=== PATIENT | female | born 1935 | race Caucasian/White ===

== ENCOUNTER 2016-07-18 10:02 | Emergency (ER) | payer OTHER ==
[~2016-07-18] VITALS: Ht 152.4 cm; Wt 88.0 kg
[2016-07-18 10:08] VITALS: BP 153/93
--- NOTE | 2016-07-18 10:53 | RADIOLOGY REPORT ---
EXAMINATION: XR CHEST CLINICAL INFORMATION: Productive cough COMPARISON: Multiple priors, most recently 04/25/2015 TECHNIQUE: PA and lateral views of the chest were obtained. FINDINGS: The lungs are well expanded. There is no focal consolidation, edema, or effusion. No pneumothorax. The cardiomediastinal silhouette is unchanged with a tortuous aorta. No acute osseous abnormality. IMPRESSION: No acute pulmonary findings
--- NOTE | 2016-07-18 11:02 | ED INFLUENZA/URI COMPLAINT ---
History of Present Illness General Chief Complaint: Fever Stated Complaint: COUGH, CONGESTIONQ Source: patient, family Exam Limitations: no limitations Vital Signs & Intake/Output Vital Signs & Intake/Output Vital Signs Date Time Temp Pulse Resp B/P Pulse O2 O2 Flow FiO2 Ox Delivery Rate 07/18 1145 Room Air 07/18 1008 97.5 98 22 153/93 96 Room Air Allergies Coded Allergies: Sulfa (Sulfonamide Antibiotics) (Severe, ANAPHYLAXIS 07/18/16) sulfite (Severe, ANAPHYLAXIS 07/18/16) Nitrate Analogues (UNKNOWN 07/18/16) shellfish derived (SWELLING 07/18/16) Reconcile Medications Benzonatate (Tessalon Perle) 100 MG CAPSULE 1 CAP PO TID PRN COUGH Triage Note: PT STATES SHE WAS DIAGNOSED WITH PNEUMONIA A WEEK AGO AND WAS PUT ON ZITHROMAX. STATES SHE DOESN'T FEEL ANY BETTER AND STILL HAS A PRODUCTIVE COUGH Triage Nurses Notes Reviewed? yes Onset: Gradual Duration: constant Timing: recent history Severity: moderate Severity Numbers: 5 HPI: Patient is an 81-year-old female with a past medical history of sleep apnea who presents emergency room with a 10 day history of intermittent chills and persistent nonproductive cough. Patient believes that she cannot "bringing anything up" from her cough. Patient states that her significant other who is present has similar sick symptoms. Patient's finished an azithromycin pack prescribed by primary care doctor on Saturday and states that she feels no better. Denies any fever, ear pain, sore throat, neck pain neck stiffness, chest pain arm and jaw pain nausea vomiting back pain shortness of breath dyspnea on exertion hemoptysis leg swelling. Patient states that due to her symptoms she is not using her sleep apnea because she believes that this will make her symptoms worse (KASSANDRA KC) Past History Travel History Traveled to [place] past 21 day No Medical History Any Pertinent Medical History? see below for history Cardiovascular: CHF Psychiatric: PANIC ATTACKS Cancer(s): UTERINE CANCER Surgical History Surgical History: hernia repair-umbilical, hysterectomy, knee surgery bladder tumor removal Psychosocial History What is your primary language Uruguayan Tobacco Use: Quit >30 days ago ETOH Use: denies use Illicit Drug Use: denies illicit drug use Family History Hx Contributory? No (KASSANDRA KC) Review of Systems Review of Systems Constitutional: Reports: see HPI, chills. Denies: fever. EENTM: Reports: no symptoms. Respiratory: Reports: see HPI, cough. Denies: hemoptysis, short of breath, sputum production , stridor. Cardiovascular: Reports: no symptoms. GI: Reports: no symptoms. Genitourinary: Reports: no symptoms. Musculoskeletal: Reports: no symptoms. Skin: Reports: no symptoms. Neurological/Psychological: Reports: no symptoms. Hematologic/Endocrine: Reports: no symptoms. Immunologic/Allergic: Reports: no symptoms. All Other Systems: Reviewed and Negative (KASSANDRA KC) Physical Exam Physical Exam General Appearance: no apparent distress, alert, obese Ears, Nose, Throat: normal ENT inspection, moist mucous membrane, hearing grossly normal, Tympanic normal, pharynx normal Comments: Well-developed well-nourished person in no acute distress HEENT: Normal EENT exam, extraocular motion intact, no nystagmus. Pupils equally round and reactive to light and accommodation. Nose is atraumatic. External auditory canal and Tympanic membranes clear. Pharynx normal. No swelling or edema. Neck: Supple, no lymphadenopathy, normal range of motion without pain or tenderness Back: Nontender, no CVA tenderness. Cardiovascular: Regular rate and rhythms no murmurs rubs or gallops, normal JVP Respiratory: Chest nontender. No respiratory distress.breath sounds clear to auscultation bilaterally Abdomen: Soft, nontender nondistended, no appreciable organomegaly. Normal bowel sounds. No ascites Extremity: No edema, no calf tenderness to palpation, normal and equal pulses. Neuro: Alert oriented x3, motor sensory normal, Skin: No appreciable rash on exposed skin, skin is warm and dry. Psych: Mood and affect is normal, memory and judgment is normal. Core Measures Severe Sepsis Present: No Septic Shock Present: No (KASSANDRA KC) Progress Differential Diagnosis: influenza, meningitis, neutropenia, otitis, pneumonia, pharyngitis, sinusitis Plan of Care: Initial physical examination patient looks well and nontoxic appearing afebrile and patient had unremarkable ear nose throat exam and had clear lungs auscultation Patient ambulated down the emergency room hallway and noted to be 97% With no concerns of rest or distress or hypoxia. Patient has no leg swelling no crackles in lungs and there is no concerns at this time the CHF. Patient has sick positive contacts as significant other has same symptoms in which I believe that at this time the patient has viral bronchitis. Patient had unresolved symptoms after azithromycin which I do not believe the patient has bacterial infection of bronchitis or pneumonia. Patient has follow-up tomorrow with primary care doctor. Chest x-ray was printed out for patient. Patient was offered steroids and Ventolin which she declined. Patient will be given Tessalon Perles and advised to begin Mucinex. Patient was strongly advised to return to emergency room if symptoms worsen and to follow-up tomorrow with primary care doctor. Discussed patient with Dr. SMITH who agrees with disposition plan Although PE is of my differential my suspicion of this is low Diagnostic Imaging: Viewed by Me: Radiology Read. CXR Impression: no acute abnormality, no infiltrates, normal size heart, normal mediastinum Initial ED EKG: none Comments: PATIENT: PAULIE RABAGO PRESENT AGE: 81 PATIENT ACCOUNT NO: [id number] : 36 LOCATION: [facility] ORDERING PHYSICIAN: THEO MORELOS DO (TBS) SERVICE DATE: 07/18/16 EXAM TYPE: RAD - XRY-CHEST XRAY, PA AND LATERAL EXAMINATION: XR CHEST CLINICAL INFORMATION: Productive cough COMPARISON: Multiple priors, most recently 04/25/2015 TECHNIQUE: PA and lateral views of the chest were obtained. FINDINGS: The lungs are well expanded. There is no focal consolidation, edema, or effusion. No pneumothorax. The cardiomediastinal silhouette is unchanged with a tortuous aorta. No acute osseous abnormality. IMPRESSION: No acute pulmonary findings (KASSANDRA KC) Departure Departure Disposition: HOME OR SELF CARE Condition: Stable Clinical Impression Primary Impression: Bronchitis Referrals: GERMAINE BRONSON,TRUDI (PCP/Family) Additional Instructions: As discussed begin to use YOUR CPAP machine as directed and please clean THE unit as directed. Begin the prescription of Tessalon Perles for your cough. Begin [id number] Mucinex for congestion relief. This prescription is waiting at [facility]. Follow up with YOUR primary care doctor's appointment tomorrow as you have an appointment. If symptoms worsen or IF YOU develop a new concerning symptom return to emergency room immediately. PROVIDE Your primary care doctor with the copy of the chest x-ray provided to you in the emergency room Departure Forms: Customer Survey General Discharge Information Prescriptions: Current Visit Scripts Benzonatate (Tessalon Perle) 1 CAP PO TID PRN COUGH #21 CAP (KASSANDRA KC) PA/GEL COAT SPRAYER Co-Sign Statement Statement: ED Attending supervision documentation- [X] I saw and evaluated the patient. I have also reviewed all the pertinent lab results and diagnostic results. I agree with the findings and the plan of care as documented in the PA's/GEL COAT SPRAYER's documentation. [X] I have reviewed the ED Record and agree with the PA's/GEL COAT SPRAYER's documentation. [] Additions or exceptions (if any) to the PAs/GEL COAT SPRAYER's note and plan are summarized below: [] (LUIS BRONSON,FLOR)
[2016-07-18] MEDS ORDERED: TESSALON PERLE100 M1 PO (11:30)
== END 2016-07-18 11:48 ==
LOC: ERH 10:02
DX: J40 Bronchitis, not specified as acute or chronic (principal); Z87.891 Personal history of nicotine dependence

== ENCOUNTER 2017-01-29 14:09 | Emergency (ER) | payer OTHER ==
[~2017-01-29] VITALS: Ht 152.4 cm; Wt 89.8 kg
[~2017-01-29 14:09] MED LIST: TESSALON PERLE100 M1 PO
--- NOTE | 2017-01-29 15:11 | ULTRASOUND REPORT ---
EXAMINATION: US TRIPLEX LOWER EXTREMITY, LEFT CLINICAL INFORMATION: Left calf pain. COMPARISON: None TECHNIQUE: Color-flow triplex imaging with spectral analysis and compression Doppler were performed on the lower extremity. FINDINGS: Respiratory variation, normal compression and augmented flow are noted throughout the left lower extremity. The visualized common femoral vein, superficial femoral vein, profunda femoral vein, popliteal vein and midcalf peroneal and posterior tibial venous segments show no evidence of deep venous thrombosis. There is a 4.1 x 1.4 x 1.5 cm popliteal fossa Osullivan's cyst. IMPRESSION: No evidence for deep venous thrombosis. Left popliteal fossa Osullivan's cyst.
--- NOTE | 2017-01-29 15:47 | ED UPPER/LOWER EXTREMITY COMPL ---
History of Present Illness General Chief Complaint: Lower Extremity Problems Stated Complaint: L LEG PAIN,PER PT "I THINK I HAVE A BLOOD CLOT" Source: patient Exam Limitations: no limitations Vital Signs & Intake/Output Vital Signs & Intake/Output Vital Signs Date Time Temp Pulse Resp B/P B/P Pulse O2 O2 Flow FiO2 Mean Ox Delivery Rate 01/29 1557 85 18 168/79 95 Room Air 01/29 1417 98.6 109 20 180/90 96 Room Air Allergies Coded Allergies: Sulfa (Sulfonamide Antibiotics) (Severe, ANAPHYLAXIS 07/18/16) sulfite (Severe, ANAPHYLAXIS 07/18/16) Nitrate Analogues (UNKNOWN 07/18/16) shellfish derived (SWELLING 07/18/16) Reconcile Medications Multivitamin (Multi-Day Vitamins) 1 EACH TABLET 1 TAB PO DAILY SUPPLEMENT ( Reported) Triage Note: PT TO ED C/O LEFT CALF PAIN X 1 WEEK. "I THINK I HAVE A BLOOD CLOT". PAIN IS WORSE WITH WEIGHT BEARING. Triage Nurses Notes Reviewed? yes Onset: Gradual Duration: week(s): (1) Timing: remote history Severity: moderate Severity Numbers: 5 Pain/Injury Location: Left: Leg. Method of Injury: unknown Modifying Factors: Improves With: immobilization. Worsens With: movement. HPI: Patient is an 82-year-old female presenting to the emergency department with chief complaint of left calf pain that's been going on constantly for the past one week. Pain is worse with range of motion and palpation. History of Osullivan's cyst in the past. She's been trying to ambulate more frequently to help with her symptoms. Denies any chest pain, shortness of breath or palpitations. Denies taking any medications to help with pain. Denies any recent travel. No history of DVT in the past. (SHONA FLANAGAN) Past History Travel History Traveled to [place] past 21 day No Medical History Any Pertinent Medical History? see below for history Cardiovascular: CHF Psychiatric: PANIC ATTACKS Cancer(s): UTERINE CANCER Surgical History Surgical History: hernia repair-umbilical, hysterectomy, knee surgery bladder tumor removal Psychosocial History What is your primary language Georgian Tobacco Use: Never used ETOH Use: denies use Illicit Drug Use: denies illicit drug use Family History Hx Contributory? No (SHONA FLANAGAN) Review of Systems Review of Systems Constitutional: Reports: no symptoms. Comments Review of systems: See HPI, All other systems negative. Constitutional, no chills fever or weight loss HEENT: No visual changes no sore throat no congestion Cardiovascular: No chest pain ,palpitation , orthopnea Skin, no jaundice no rashes Respiratory: No dyspnea cough sputum or hemoptysis GI: No nausea no vomiting Muscle skeletal: no back pain, no neck pain, Neurologic: No numbness no confusion, no headaches Psych: No stress anxiety or depression,. Heme/endocrine: No bruising no bleeding no polyuria or polydipsia Immunology: No splenectomy or history of AIDS (SHONA FLANAGAN) Physical Exam Physical Exam General Appearance: well developed/nourished, no apparent distress, alert, awake , comfortable Comments: Well-developed well-nourished person in no acute distress HEENT: Atraumatic. Nose is atraumatic. Neck: Normal inspection Back: Nontender, no CVA tenderness. Full range of motion Cardiovascular: Regular rate and rhythms no murmurs rubs or gallops, normal JVP Respiratory: No respiratory distress Extremity: No edema, mild tenderness to palpation of the posterior aspect of the left calf. No erythema. No pitting edema appreciated. Pedal pulses are 2+ bilaterally. Negative Isaacs sign. No pain to palpation over the anterior aspect of the left patella. Mild tenderness to palpation in the left popliteal space. No palpable cord on the left lower extremity. Full range of motion of Rere's bilaterally without difficulty or pain. Neuro: Alert oriented x3, motor sensory normal in the lower extremities. Skin: No appreciable rash on exposed skin, skin is warm and dry. Psych: Mood and affect is normal, memory and judgment is normal. (SHONA FLANAGAN) Progress Differential Diagnosis: contusion, dislocation, DVT, sprain, tendon injury, bakers cyst Plan of Care: Patient informed of ultrasound results. Positive Osullivan's cyst. No DVT. Patient she did symptomatically. Given orthopedic for follow-up. Educated on elevation and icing as needed. Discussed with and he agrees with plan. Diagnostic Imaging: Viewed by Me: Ultrasound. Discussed w/RAD: Ultrasound. Radiology Impression: PATIENT: PAULIE RABAGO PRESENT AGE: 82 PATIENT ACCOUNT NO: [id number] : 36 LOCATION: [facility] ORDERING PHYSICIAN: THEO MORELOS DO SERVICE DATE: 01/29/17 EXAM TYPE: US - US-UNILATERAL VENOUS DOPPLER EXAMINATION: US TRIPLEX LOWER EXTREMITY, LEFT CLINICAL INFORMATION: Left calf pain. COMPARISON: None TECHNIQUE: Color- flow triplex imaging with spectral analysis and compression Doppler were performed on the lower extremity. FINDINGS: Respiratory variation, normal compression and augmented flow are noted throughout the left lower extremity. The visualized common femoral vein, superficial femoral vein, profunda femoral vein, popliteal vein and midcalf peroneal and posterior tibial venous segments show no evidence of deep venous thrombosis. There is a 4.1 x 1.4 x 1.5 cm popliteal fossa Osullivan's cyst. IMPRESSION: No evidence for deep venous thrombosis. Left popliteal fossa Osullivan's cyst. DICTATED BY: RADHA MORTON MD DATE/TIME DICTATED:01/29/171506 REAL ESTATE ADMINISTRATIVE ASSISTANT:BERNA DATE/TIME TRANSCRIBED:01/29/171506 (SHONA FLANAGAN) Departure Departure Time of Disposition: 0 Disposition: HOME OR SELF CARE Condition: Stable Clinical Impression Primary Impression: Bakers cyst Qualifiers: Laterality: left Qualified Code: M71.22 - Synovial cyst of popliteal space [Osullivan], left knee Secondary Impressions: Hypertension Qualifiers: Hypertension type: essential hypertension Qualified Code: I10 - Essential (primary) hypertension Referrals: TRUDI HERRON MD (PCP/Family) Additional Instructions: Follow-up with your primary care physician call to make an appointment. Rest and elevate your left lower extremities as needed. Apply ice affected area. Take Tylenol a counter as directed for pain. Departure Forms: Customer Survey General Discharge Information (SHONA FLANAGAN) PA/SUGAR SAMPLER Co-Sign Statement Statement: ED Attending supervision documentation- [x] I saw and evaluated the patient. I have also reviewed all the pertinent lab results and diagnostic results. I agree with the findings and the plan of care as documented in the PA's/SUGAR SAMPLER's documentation. [] I have reviewed the ED Record and agree with the PA's/SUGAR SAMPLER's documentation. [] Additions or exceptions (if any) to the PAs/SUGAR SAMPLER's note and plan are summarized below: [] (THEO MORELOS DO
[2017-01-29] MEDS ORDERED: MULTI-DAY VITA1 EACH PO (15:53)
[2017-01-29 15:57] VITALS: BP 168/79
== END 2017-01-29 16:07 ==
LOC: ERH 14:09
DX: M71.22 Synovial cyst of popliteal space [Baker], left knee (principal); I10 Essential (primary) hypertension